=== PATIENT | female | born 1950 | race Caucasian/White ===

== ENCOUNTER 2019-05-04 09:44 | Outpatient (CLI) | payer OTHER, SELFPAY ==
--- NOTE | 2019-05-04 10:40 | ECG_ITS ---
Measurements Intervals [place] Rate: 69 P: 60 ID: 170 QRS: 8 QRSD: 80 T: 30 QT: 377 QTc: 404 Interpretive Statements SINUS RHYTHM LOW QRS VOLTAGE IN PRECORDIAL LEADS BORDERLINE T WAVE ABNORMALITY- INFERIOR LEADS BASELINE ARTIFACT- I, II, III, AVR, AVL, AVF BORDERLINE ECG Electronically Signed On 05-04-2019 11:14:31 ERP TECHNICAL LEAD by Randall Rodriguez D.O.
[2019-05-04 11:35] LABS: Basophils Absolute Auto 0.1 K/mm3 (0.0-0.1); Eosinophils Absolute Auto 0.2 K/mm3 (0-0.3); Hematocrit 41.3 % (37.0-47.0); Hemoglobin 13.4 g/dL (12.0-15.0); Immature Granulocyte Absolute 0.04 K/mm3 (0.00-0.031); Immature Granulocyte Percent A 0.4 % (0-0.5); Lymphocytes Absolute Auto 2.78 K/mm3 (0.9-3.2); Lymphocytes Percent Auto 29.6 % (18.3-44.2); Mean Corpuscular HGB Conc 32.4 g/dl (32-36); Mean Corpuscular Hemoglobin 29.7 pg (26-34); Mean Corpuscular Volume 91.6 fl (80-100); Mean Platelet Volume 12.1 fl (7.4-10.4); Monocytes Absolute Auto 0.6 K/mm3 (0.1-0.6); Monocytes Percent Auto 6.3 % (2.6-8.5); Neutrophils Absolute Auto 5.7 K/mm3 (1.3-6.7); Neutrophils Percent Auto 60.7 % (45.5-73.1); Platelet Count Result 273 k/mm3 (150-375); Red Blood Count 4.51 M/mm3 (4.2-5.4); Red Cell Distribution Width 12.7 % (11.5-14.5); White Blood Count 9.4 K/mm3 (4.5-10.0)
[2019-05-04 11:46] LABS: Albumin Level 4.1 g/dL (3.5-5.1); Estimated Glomerular Filt Rate 55; Glucose 73 mg/dL (65-105)
[2019-05-04 12:19] LABS: Hemoglobin A1C 6.1 % (<5.7)
[2019-05-04 12:21] LABS: Urine Cotinine NEGATIVE
== END 2019-05-04 09:45 | disposition home or self-care (01) ==
PROVIDERS: PCP Nurse Practitioner Family; Visit Provider Orthopaedic Surgery
DX: Z41.9 Encounter for procedure for purposes other than remedying health state, unspecified (principal); I10 Essential (primary) hypertension; R94.31 Abnormal electrocardiogram [ECG] [EKG]
CPT/HCPCS: 36415; 80307; 82040; 82565; 82947; 83036; 85025; 86850; 86900; 86901; 93005

== ENCOUNTER 2019-05-06 09:20 | Outpatient (CLI) | payer OTHER, SELFPAY ==
[2019-05-06 09:54] LABS: Blood Urea Nitrogen 22 mg/dL (7-17); Calcium 8.8 mg/dL (8.4-10.2); Carbon Dioxide 24 mmol/L (22-30); Chloride 104 mmol/L (98-107); Estimated Glomerular Filt Rate > 60; Glucose 91 mg/dL (65-105); Sodium 138 mmol/L (137-145)
== END 2019-05-06 09:21 | disposition home or self-care (01) ==
PROVIDERS: PCP Nurse Practitioner Family; Visit Provider Anesthesiology
DX: Z79.899 Other long term (current) drug therapy (principal)
CPT/HCPCS: 36415; 80048

== ENCOUNTER 2019-05-13 00:35 | Day surgery (SDC) | payer OTHER, SELFPAY ==
[2019-05-04 10:14] VITALS: BMI 38.0
[2019-05-04 10:38] VITALS: BP 160/72; PULSE 80; RESP 20; TEMP 37.6; O2SAT 94
--- NOTE | 2019-05-06 13:48 | PM.IMHP ---
H&P: HPI History of Present Illness Chief complaint: OA Right Knee Narrative: Garima Chairez is a 68 year old female with chronic R knee pain due to OA, pain not relieved by coservative measures including cortisone, PT, NSAIDS and activity modifications, xrays reveal advanced DJD, now ready for TKA Review of Systems Review of Systems: All systems reviewed & are unremarkable except as noted in HPI and below PMFSH Past Medical History Medical History (Updated 05/06/19 @ 13:56 by GIOVANI Grissom) Acute atopic conjunctivitis of both eyes Encounter for screening colonoscopy 2015 Essential (primary) hypertension Surgical History Surgical History (Updated 03/17/19 @ 16:07 by Adalgisa Paez NP) H/O cervical spinal arthrodesis H/O tubal ligation 1974 History of tonsillectomy Family History Family History (Updated 11/26/13 @ 07:13 by DOCTOR UNKNOWN) Sibling Family history of glaucoma Hypertension Family history of heart disease in male family member before age 55 Mother Family history of malignant neoplasm of bone Father Family history of heart disease in male family member before age 55 Social History Social History Smoking status: Former smoker Second hand tobacco smoke exposure: No Smoking end date: 04/01/02 Alcohol intake: current Meds Home Medications and Allergies Home Medications Medication Instructions Recorded Confirmed Type fluticasone propionate 50 1 spray NASAL DAILY PRN 03/17/19 05/04/19 History mcg/actuation nasal spray,suspension triamterene 37.5 1 cap PO DAILY #90 cap 03/17/19 05/04/19 Rx mg-hydrochlorothiazide 25 mg capsule acetaminophen 1,000 mg PO Q6H PRN 05/04/19 05/04/19 History calcium carbonate-vitamin D3 1 tablet DAILY 05/04/19 05/04/19 History [Calcium 600 + D(3)] ibuprofen 600 mg PO Q6H PRN 05/04/19 05/04/19 History losartan 100 mg PO HS 05/04/19 05/04/19 History Allergies Allergy/AdvReac Type Severity Reaction Status Date / Time Penicillins Allergy Unknown Rash Verified 05/04/19 10:02 Exam HENMT: Head: normal to inspection Resp: Effort & Inspection: normal respiratory effort Auscultation: clear to auscultation bilaterally Cardio: Rate: regular rate Rhythm: regular rhythm GI: Inspection: normal to inspection Auscultation: normal bowel sounds Skin: General skin exam: normal color Lesions: no lesions Rashes: no rashes Neuro: General: oriented to person, oriented to place, oriented to time, patient oriented x3 and CN's II-XI intact bilaterally Extrem: Other: R knee shows pain with manip and ROM, has subpatellar crepitation, tenderness along the joint lines,mild effusion, pain with ambulation, hips move well with neg stinchfield, neg ayaka Psych: Appearance: grossly normal Assessment and Plan Assessment and plan (1) Osteoarthritis, knee: Qualifiers: Laterality: right Osteoarthritis type: primary Qualified Code(s): M17.11 - Unilateral primary osteoarthritis, right knee Code(s): M17.10 - Unilateral primary osteoarthritis, unspecified knee Status: Acute Assessment and Plan: Primary OA R knee, has discussed risks benefits limitations and alternatives in detail with Dr Chairez and is ready to proceed with a R total knee arthroplasty on 05-13-19 at [facility]
--- NOTE | 2019-05-12 18:05 | WPDANESEPP ---
Anes - Eval Pre Procedure Procedure: Operation Date: 05/13/19 07:30 Proposed Procedures p Right Total Knee Arthroplasty - Lukas Chairez MD Date/Time: 05/12/19 18:05 Pre Op Diagnosis: OA Right Knee Patient Data Age: 68 Gender: F Height: 1.55 m Weight: 91.2 kg Last Vital Signs Temp 37.6 C H 05/04/19 10:38 Pulse 80 05/04/19 10:38 Resp 20 05/04/19 10:38 BP 160/72 H 05/04/19 10:38 Pulse Ox 94 05/04/19 10:38 Allergies Allergy/AdvReac Type Severity Reaction Status Date / Time Penicillins Allergy Unknown Rash Verified 05/04/19 10:02 Home Medications Medication Instructions Recorded Confirmed Type fluticasone propionate 50 1 spray NASAL DAILY PRN 03/17/19 05/04/19 History mcg/actuation nasal spray,suspension triamterene 37.5 1 cap PO DAILY #90 cap 03/17/19 05/04/19 Rx mg-hydrochlorothiazide 25 mg capsule acetaminophen 1,000 mg PO Q6H PRN 05/04/19 05/04/19 History calcium carbonate-vitamin D3 1 tablet DAILY 05/04/19 05/04/19 History [Calcium 600 + D(3)] ibuprofen 600 mg PO Q6H PRN 05/04/19 05/04/19 History losartan 100 mg PO HS 05/04/19 05/04/19 History Patient hx anesthesia problems: none Family hx anesthesia problems: none PMFSH Past Medical History Medical History (Updated 05/12/19 @ 13:15 by Hugh Vázquez DO) Acute atopic conjunctivitis of both eyes DJD (degenerative joint disease), cervical Encounter for screening colonoscopy 2015 Essential (primary) hypertension Surgical History Surgical History (Updated 03/17/19 @ 16:07 by Adalgisa Paez NP) H/O cervical spinal arthrodesis H/O tubal ligation 1974 History of tonsillectomy Family History Family History (Updated 11/26/13 @ 07:13 by DOCTOR UNKNOWN) Sibling Family history of glaucoma Hypertension Family history of heart disease in male family member before age 55 Mother Family history of malignant neoplasm of bone Father Family history of heart disease in male family member before age 55 Social History Social History Smoking status: Former smoker Second hand tobacco smoke exposure: No Smoking end date: 04/01/02 Alcohol intake: current Exam Day of Procedure 05/12/19 18:05
[2019-05-13] VITALS (12 sets, daily range): BP systolic 89–118; BP diastolic 45–61; PULSE 63–86; RESP 10–20; TEMP 36.4–37; O2SAT 94–100; BMI 37.8
--- NOTE | ~2019-05-13 | XR_ITS ---
EXAMINATION: XR knee RT 2V DATE: 05/13/2019 09:17 INDICATION: Total right knee arthroplasty. Postop. TECHNIQUE: 2 views of right knee were obtained. COMPARISON: Right knee radiographs 11/19/2018 FINDINGS: There is a total right knee arthroplasty with patellar resurfacing in near-anatomic alignme nt. No fracture. There is gas in the knee joint and soft tissues, consistent with recent surgery. Ant erior skin holile are noted. IMPRESSION: 1. Total right knee arthroplasty in near-anatomic alignment. Reviewed, dictated and finalized at location A. [employer] DESIGNER
[2019-05-13] MEDS: LACTATED RINGERS 1,000 ML 30 ML IV CONT ×2 (06:34→09:29)
--- NOTE | 2019-05-13 07:00 | WPDANESPNB ---
Anes - Peripheral Nerve Block Date/Time: 05/13/19 07:00 I have discussed with the patient/family/POA the placement of a peripheral nerve block for post-operative pain management, including associated risks, benefits, complications, and side effects. Alternative methods of post-operative analgesia were detailed. Questions were solicited and answers provided to the satisfaction of the patient/family/POA. Time-Out: A pre-procedural Time-Out was completed immediately before starting the procedure and confirmed: Patient Identification, Site, Procedure, Patient Position and the Availability of Requisite Equipment. Clinical Indications: Acute post-operative pain management requested by the operative surgeon. Nerve Block Insertion Note Anes-nerve block: adductor canal right Patient position: supine Skin prep: chlorhexidine Needle: 22 gauge, stimulating, insulated echogenic needle. Needle length: 80 mm Technique: ultrasound Injectate: bupivacaine 0.5% with epi 5 mcg/ml (30cc) Observations: tolerated well Complications: none Procedure start time:: 719 Procedure end time:: 722
--- NOTE | 2019-05-13 07:21 | WPDHPUPDATE1 ---
History and Physical Update Update Date/Time: 05/13/19 07:21 History and Physical has been reviewed, including an updated exam of the patient. There are NO changes in the patient's condition. Risks, benefits, and alternatives have been discussed and questions answered. Patient agrees to proceed with procedure.
[2019-05-13] MEDS: CLINDAMYCIN 900 MG/NS 50 ML 900 MG/50 ML PIGGYBACK 50 MG IVPB ×2 (07:29→21:16)
--- NOTE | 2019-05-13 08:40 | P.OP_ITS ---
Procedure Note - Detailed Date of procedure: 05/13/19 Pre-op diagnosis: OA Right Knee Post-op diagnosis: same Procedure performed: [Right] total knee arthroplasty Description of procedure: The patient was brought to the operating room. General anesthetic was administered. Placed on the operating table and sterilely prepped and draped in usual manner. A longitudinal incision was made. Tourniquet inflated to 300 mmHg for a total of [time] minutes. Dissection carried down to the fascia. Medial parapatellar incision was made and the patella subluxated laterally. Patella cut from [23] to [14] mm and sized for a [34] mm button. The tibia cut perpendicular to the long axis and femur cut in 5 degrees of valgus, a [62.5] femur trialed. [67] tibia was felt to fit the best. The soft tissue balanced, hemostasis obtained. All [address], [67] tibia, [62.5] femur, [34] mm patella, and [11] mm poly. Motion was 0-125 degrees with good stablility and flexion and extension. The wound was closed with #2 vicryl, 2-0 Vicryl and hollie. Anesthesia: GETA Surgeon: Lukas Chairez MD Elementary Vocal Music Teacher: Narendra Mae Estimated blood loss (mL): 200 Drains: No Packing: No Pathology: none sent Complications: No immediate complications Condition: stable Disposition: PACU Findings: arthritis
[2019-05-13] MEDS: GENTAMICIN BONE CEMENT REFOBACIN 1 EACH TOPICAL (08:47)
[2019-05-13] MEDS: HYDROMORPHONE HCL 1 MG/ML INJ 0.5 MG IV PUSH (09:49)
--- NOTE | 2019-05-13 10:24 | SUR.PHASEI ---
1012 sbar faxed floor notified 1010 family updated and sent to floor
--- NOTE | 2019-05-13 10:41 | SUR.PHASEI ---
Addendum entered by Jonatan Jolly RN 05/13/19 10:42: radiology at bedside for rt knee xrays Original Note: 0910
--- NOTE | 2019-05-13 10:53 | ADMGEN ---
This patient, Garima Chairez, was admitted to 3 Med Surg Room 322-02 at 1045. Patient/family oriented to hospital policies and general routines including ID bracelet, bed and alarms, visiting hours, pain management, procedures, bathroom and other care routines, personal items, smoking policy, room service/diet, and visiting hours. Valuables list has been completed. Information on how to activate the Rapid Response Team has been discussed. Patient/Family are encouraged to report perceived risks to care and to ask questions if they do not understand what they are told or what they should do.
[2019-05-13 12:05] LABS: Estimated CRCL calculation 49 ml/min; Estimated Glomerular Filt Rate 55
[2019-05-13] MEDS: SODIUM CHLORIDE 0.9% IV 1,000 ML 125 ML IV CONT (12:09)
[2019-05-13] MEDS: TRIAMTERENE 37.5 MG/HCTZ 25 MG (MAXZIDE) TABLET 1 TAB PO (12:11)
[2019-05-13] MEDS: SODIUM CHLORIDE 0.9% IV 1,000 ML 999 ML IV CONT (13:15)
[2019-05-13 13:26] LABS: Hematocrit 38.3 % (37.0-47.0); Hemoglobin 11.4 g/dL (12.0-15.0); Mean Corpuscular HGB Conc 29.8 g/dl (32-36); Mean Corpuscular Hemoglobin 29.8 pg (26-34); Mean Corpuscular Volume 100.3 fl (80-100); Mean Platelet Volume 11.4 fl (7.4-10.4); Platelet Count Result 244 k/mm3 (150-375); Red Blood Count 3.82 M/mm3 (4.2-5.4); Red Cell Distribution Width 13.2 % (11.5-14.5); White Blood Count 13.4 K/mm3 (4.5-10.0)
[2019-05-13 13:39] LABS: Blood Urea Nitrogen 19 mg/dL (7-17); Carbon Dioxide 20 mmol/L (22-30); Chloride 103 mmol/L (98-107); Estimated CRCL calculation 54 ml/min; Estimated Glomerular Filt Rate > 60; Glucose 118 mg/dL (65-105); Potassium 4.6 mmol/L (3.4-5.0); Sodium 136 mmol/L (137-145)
--- NOTE | 2019-05-13 14:35 | PM.IMCN ---
Assessment and Plan Assessment and plan (1) Osteoarthritis, knee: Qualifiers: Osteoarthritis type: primary Laterality: right Qualified Code(s): M17.11 - Unilateral primary osteoarthritis, right knee Code(s): M17.10 - Unilateral primary osteoarthritis, unspecified knee Status: Acute Assessment and Plan: Postop day 0, appears to be doing well and further intervention per Ortho (2) Essential (primary) hypertension: Code(s): I10 - Essential (primary) hypertension Status: Chronic Assessment and Plan: With low blood pressure in the ARB will be held and continue to monitor (3) Hypotension: Code(s): I95.9 - Hypotension, unspecified Status: Acute Assessment and Plan: Probably multifactorial. Will hold ARB and fluid challenge. She seems to be slightly dry with BUN at 20 Hemoglobin is stable. Continue to monitor no suggestion of any cardiac malady (4) DVT (deep venous thrombosis): Code(s): I82.409 - Acute embolism and thrombosis of unspecified deep veins of unspecified lower extremity Status: Acute Assessment and Plan: Xarelto per Ortho HPI Data of Consult Consult date: 05/13/19 Requesting Physician: Lukas Chairez MD Primary Care Provider: Adalgisa Paez NP Consult Narrative Narrative: Date of visit 05/13 1399 Garima Chairez is a 68 year old hypertensive white female status post right total knee arthroplasty this a.m.. Was called because her blood pressure was low to evaluate and treat. She did receive her losartan last evening and her hydrochlorothiazide triamterene and this a.m. she denied any lightheadedness chest pain shortness of breath or other symptomatology. There was no unusual blood loss at surgery. She states her usual blood pressure is systolic about 120 and did have trouble with her pressure running low post colonoscopy. She also relates she had a negative stress test within the last 1-2 years at [facility] for atypical chest discomfort. Review of Systems Review of Systems: Narrative: Constitutional appetite good weight is stable Eye no double vision or scotoma Pulmonary no shortness breath wheezing cough CV no palpitations chest pain no dysuria no hematuria GI no melena hematochezia diarrhea or dysphagia Muscle skeletal the arthritis has per present illness left knee minimal discomfort at times Neuro no history of seizure syncope Integument no rashes or skin breakdown Psych no history of depression [facility] Past Medical History Medical History (Updated 05/13/19 @ 14:43 by Esau Melendez MD) Acute atopic conjunctivitis of both eyes DJD (degenerative joint disease), cervical Encounter for screening colonoscopy 2016 Essential (primary) hypertension Surgical History Surgical History (Updated 03/17/19 @ 16:07 by Adalgisa Paez NP) H/O cervical spinal arthrodesis H/O tubal ligation 1974 History of tonsillectomy Social History Social History Smoking packs per day: 2.5 Smoking cigarettes per day: 50.0 Years smoked: 18 Smoking pack-years: 45.00 Smoking status: Former smoker Second hand tobacco smoke exposure: No Smoking end date: 04/01/02 Alcohol intake: current Drinks per week: 1 Substance use: never Gender identity (if verbalized by the patient): Female Spiritual care concerns: No Agree to blood products: Yes Meds Home Medications and Allergies Home Medications Medication Instructions Recorded Confirmed Type fluticasone propionate 50 1 spray NASAL DAILY PRN 03/17/19 05/13/19 History mcg/actuation nasal spray,suspension triamterene 37.5 1 cap PO DAILY #90 cap 03/17/19 05/13/19 Rx mg-hydrochlorothiazide 25 mg capsule acetaminophen 1,000 mg PO Q6H PRN 05/04/19 05/13/19 History calcium carbonate-vitamin D3 1 tablet DAILY 05/04/19 05/13/19 History [Calcium 600 + D(3)] ibuprofen 600 mg PO Q6H PRN 05/04/19 05/13/19 History losartan 100 mg PO HS 02
[2019-05-13] MEDS: DOCUSATE SODIUM 100 MG CAPSULE PO (18:20)
[2019-05-13] MEDS: RIVAROXABAN 10 MG TABLET PO (18:21)
[2019-05-14 02:05] VITALS: BP 113/51; PULSE 85; RESP 18; TEMP 36.8; O2SAT 91
[2019-05-14 06:11] VITALS: BP 114/54; PULSE 88; RESP 18; TEMP 37; O2SAT 92
[2019-05-14 06:56] LABS: Basophils Percent Auto 0.3 % (0.2-1.2); Eosinophils Absolute Auto 0.1 K/mm3 (0-0.3); Eosinophils Percent Auto 0.7 % (0-4.4); Hematocrit 32.3 % (37.0-47.0); Hemoglobin 10.4 g/dL (12.0-15.0); Immature Granulocyte Absolute 0.04 K/mm3 (0.00-0.031); Immature Granulocyte Percent A 0.4 % (0-0.5); Lymphocytes Absolute Auto 1.81 K/mm3 (0.9-3.2); Lymphocytes Percent Auto 17.3 % (18.3-44.2); Mean Corpuscular HGB Conc 32.2 g/dl (32-36); Mean Corpuscular Hemoglobin 29.5 pg (26-34); Mean Corpuscular Volume 91.5 fl (80-100); Mean Platelet Volume 11.2 fl (7.4-10.4); Monocytes Absolute Auto 0.9 K/mm3 (0.1-0.6); Monocytes Percent Auto 8.3 % (2.6-8.5); Neutrophils Absolute Auto 7.7 K/mm3 (1.3-6.7); Platelet Count Result 219 k/mm3 (150-375); Red Blood Count 3.53 M/mm3 (4.2-5.4); White Blood Count 10.5 K/mm3 (4.5-10.0)
[2019-05-14 07:14] LABS: Blood Urea Nitrogen 15 mg/dL (7-17); Calcium 7.7 mg/dL (8.4-10.2); Carbon Dioxide 23 mmol/L (22-30); Chloride 104 mmol/L (98-107); Estimated CRCL calculation 60 ml/min; Estimated Glomerular Filt Rate > 60; Glucose 110 mg/dL (65-105); Potassium 3.8 mmol/L (3.4-5.0); Sodium 136 mmol/L (137-145)
[2019-05-14] MEDS: DOCUSATE SODIUM 100 MG CAPSULE PO ×2 (08:51→17:37)
[2019-05-14] MEDS: TRIAMTERENE 37.5 MG/HCTZ 25 MG (MAXZIDE) TABLET 1 TAB PO (08:51)
[2019-05-14] MEDS: CELECOXIB 200 MG CAPSULE PO ×2 (12:51→17:36)
[2019-05-14 14:00] VITALS: BP 120/50; PULSE 78; RESP 18; TEMP 37; O2SAT 98
--- NOTE | 2019-05-14 14:53 | P.PNAN_ITS ---
Anes - Prog Note Post-Op Date/Time: 05/14/19 14:53 Cardiovascular status: normal Respiratory status: normal Airway patency: baseline Mental status: baseline Post-Op hydration status: normal Vital Signs: Last Vital Signs Temp 98.6 F 05/14/19 14:00 Pulse 78 05/14/19 14:00 Resp 18 05/14/19 14:00 BP 120/50 L 05/14/19 14:00 Pulse Ox 98 05/14/19 14:00 I/O: Intake & Output 05/13/19 05/14/19 05/14/19 23:59 07:59 15:59 Intake Total 650 1350 240 Output Total 300 400 0 Balance 350 950 240 Laboratory Tests 05/14/19 06:31 05/14/19 06:31 05/14/19 05/14/19 06:31 06:31 WBC 10.5 H RBC 3.53 L Hgb 10.4 L Hct 32.3 L MCV 91.5 D MCH 29.5 MCHC 32.2 RDW 13.0 Plt Count 219 MPV 11.2 H Immature Gran % (Auto) 0.4 Neut % (Auto) 73.0 Lymph % (Auto) 17.3 L [place] % (Auto) 8.3 Eos % (Auto) 0.7 Baso % (Auto) 0.3 Lymph # (Auto) 1.81 [place] # (Auto) 0.9 H Eos # (Auto) 0.1 Baso # (Auto) 0.0 Abs Immat Gran (auto) 0.04 H Absolute Neuts (auto) 7.7 H Absolute Nucleated RBC 0.0 Nucleated RBC % 0.0 Sodium 136 L Potassium 3.8 Chloride 104 Carbon Dioxide 23 BUN 15 Creatinine 0.80 Estim Creat Clear Calc 60 Estimated GFR > 60 Glucose 110 H Calcium 7.7 L Post-procedural complaints: none Patient Feedback: Patient satisfied with anesthetic care.
--- NOTE | 2019-05-14 16:47 | PM.IMPN ---
Progress Note: A&P Assessment and Plan (1) Osteoarthritis, knee: Qualifiers: Osteoarthritis type: primary Laterality: right Qualified Code(s): M17.11 - Unilateral primary osteoarthritis, right knee Code(s): M17.10 - Unilateral primary osteoarthritis, unspecified knee Status: Acute Assessment and Plan: Postop day 1, appears to be doing well and further intervention per Ortho (2) Essential (primary) hypertension: Code(s): I10 - Essential (primary) hypertension Status: Chronic Assessment and Plan: With low blood pressure holding the ARB and continue monitor pressure continuing diuretic (3) Hypotension: Code(s): I95.9 - Hypotension, unspecified Status: Acute Assessment and Plan: Probably multifactorial. Held aRB and with fluid challenge blood pressure rebounded. (4) DVT (deep venous thrombosis): Code(s): I82.409 - Acute embolism and thrombosis of unspecified deep veins of unspecified lower extremity Status: Acute Assessment and Plan: Xarelto per Ortho Subjective Date/time seen: 05/14/19 16:47 Interval history: Date of visit 05/14. [age] old hypertensive white female postop day 1. Right total knee arthroplasty. Having quite a bit of pain otherwise doing okay. No shortness of breath lightheadedness or dizziness Exam Narrative: Exam Narrative: Blood pressure 120/50 pulse 70 right arm lying afebrile Pupils equal reactive to light sclera anicteric Lungs clear CV regular rate rhythm no murmurs or gallops Abdomen soft nontender obese no masses Extremities without edema right leg is wrapped from foot to above knee but can still palpate dorsalis pedis well and 2+ and symmetrical Objective Data Vital Signs Vital Signs: Vital Signs - 24 hr 05/13/19 22:00 05/14/19 02:05 05/14/19 06:11 Temperature 36.6 C 36.8 C 37.0 C Pulse Rate 72 85 88 Respiratory Rate 18 18 18 Blood Pressure 116/52 L 113/51 L 114/54 L Pulse Oximetry 94 91 92 05/14/19 14:00 Temperature 37.0 C Pulse Rate 78 Respiratory Rate 18 Blood Pressure 120/50 L Pulse Oximetry 98 Intake/Output Intake/Output: Intake & Output 05/11/19 05/12/19 05/13/19 05/14/19 23:59 23:59 23:59 23:59 Intake Total 3550 1590 Output Total 300 400 Balance 3250 1190 Meds/Results Medications: Active Medications Generic Name Dose Route Start Last Admin Trade Name Freq PRN Reason Stop Dose Admin Acetaminophen 1,000 mg 05/13/19 08:45 Tylenol Tablet PO Q6H PRN Pain 1-3 Hydrocodone Bitart/Acetaminophen 1 tab 05/13/19 13:00 05/14/19 12:51 [place] 7.5-325 Mg PO 1 tab Q4HR CRAIG Administration Celecoxib 200 mg 05/14/19 09:00 05/14/19 12:51 Celebrex PO 200 mg BIDWM CRAIG Administration Docusate Sodium 100 mg 05/13/19 17:00 05/14/19 08:51 Colace Capsule PO 100 mg BID CRAIG Administration Fentanyl Citrate 25 mcg 05/12/19 13:15 05/13/19 09:38 Sublimaze IV PUSH 25 mcg Q2M PRN Administration Pain Losartan Potassium 100 mg 05/13/19 21:00 Cozaar PO HS CRAIG Morphine Sulfate 4 mg 05/13/19 08:42 Morphine Sulfate Inj IV PUSH Q2H PRN Breakthrough pain rated 7-10 Naloxone HCl 0.1 mg 05/13/19 08:42 Narcan IV PUSH Q2M PRN Opiate Reversal Oxycodone HCl 5 mg 05/13/19 08:42 Roxicodone Ir Tablet PO Q4H PRN Pain Rated 4-6 Rivaroxaban 10 mg 05/13/19 17:00 05/13/19 18:21 Xarelto PO 05/24/19 17:01 10 mg DAILY@17 CRAIG Administration Tramadol HCl 50 mg 05/13/19 08:42 Ultram PO Q4H PRN Pain Rated 4-6 Triamterene/HCTZ 1 tab 05/13/19 09:00 05/14/19 08:51 Maxzide-25 PO 1 tab DAILY CRAIG Administration Radiology Results: ITS Impressions Knee X-Ray 05/13/19 09:18 IMPRESSION: 1. Total right knee arthroplasty in near-anatomic alignment. Labs Labs: Laboratory Results - last 24 hr 05/14/19 05/14/19 06:31 06:31 WBC 1
--- NOTE | 2019-05-14 16:54 | PM.PNORT ---
Progress Note: A&P Additional Plan pt doing well POD #1, DC home today, see orders Time Spent With Patient Time with patient: less than 15 minutes Subjective Subjective Date/Time Seen: 05/14/19 16:54 Pt with some post op pain after block wore off, but otherwise doing well, no other complaints and ready to go home Exam Narrative: Exam Narrative: VSS afebrile NV intact wound dressing clean and dry calves benign Objective Data Vital Signs Vital Signs: Vital Signs - 24 hr 05/13/19 22:00 05/14/19 02:05 05/14/19 06:11 Temperature 36.6 C 36.8 C 37.0 C Pulse Rate 72 85 88 Respiratory Rate 18 18 18 Blood Pressure 116/52 L 113/51 L 114/54 L Pulse Oximetry 94 91 92 05/14/19 14:00 Temperature 37.0 C Pulse Rate 78 Respiratory Rate 18 Blood Pressure 120/50 L Pulse Oximetry 98 Intake/Output Intake/Output: Intake & Output 05/11/19 05/12/19 05/13/19 05/14/19 23:59 23:59 23:59 23:59 Intake Total 3550 1590 Output Total 300 400 Balance 3250 1190 Meds/Results Medications: Active Medications Generic Name Dose Route Start Last Admin Trade Name Freq PRN Reason Stop Dose Admin Acetaminophen 1,000 mg 05/13/19 08:45 Tylenol Tablet PO Q6H PRN Pain 1-3 Hydrocodone Bitart/Acetaminophen 1 tab 05/13/19 13:00 05/14/19 12:51 [place] 7.5-325 Mg PO 1 tab Q4HR CRAIG Administration Celecoxib 200 mg 05/14/19 09:00 05/14/19 12:51 Celebrex PO 200 mg BIDWM CRAIG Administration Docusate Sodium 100 mg 05/13/19 17:00 05/14/19 08:51 Colace Capsule PO 100 mg BID CRAIG Administration Fentanyl Citrate 25 mcg 05/12/19 13:15 05/13/19 09:38 Sublimaze IV PUSH 25 mcg Q2M PRN Administration Pain Losartan Potassium 100 mg 05/13/19 21:00 Cozaar PO HS CRAIG Morphine Sulfate 4 mg 05/13/19 08:42 Morphine Sulfate Inj IV PUSH Q2H PRN Breakthrough pain rated 7-10 Naloxone HCl 0.1 mg 05/13/19 08:42 Narcan IV PUSH Q2M PRN Opiate Reversal Oxycodone HCl 5 mg 05/13/19 08:42 Roxicodone Ir Tablet PO Q4H PRN Pain Rated 4-6 Rivaroxaban 10 mg 05/13/19 17:00 05/13/19 18:21 Xarelto PO 05/24/19 17:01 10 mg DAILY@17 CRAIG Administration Tramadol HCl 50 mg 05/13/19 08:42 Ultram PO Q4H PRN Pain Rated 4-6 Triamterene/HCTZ 1 tab 05/13/19 09:00 05/14/19 08:51 Maxzide-25 PO 1 tab DAILY CRAIG Administration Radiology Results: ITS Impressions Knee X-Ray 05/13/19 09:18 IMPRESSION: 1. Total right knee arthroplasty in near-anatomic alignment. Labs Labs: Laboratory Results - last 24 hr 05/14/19 05/14/19 06:31 06:31 WBC 10.5 H RBC 3.53 L Hgb 10.4 L Hct 32.3 L MCV 91.5 D MCH 29.5 MCHC 32.2 RDW 13.0 Plt Count 219 MPV 11.2 H Immature Gran % (Auto) 0.4 Neut % (Auto) 73.0 Lymph % (Auto) 17.3 L [place] % (Auto) 8.3 Eos % (Auto) 0.7 Baso % (Auto) 0.3 Lymph # (Auto) 1.81 [place] # (Auto) 0.9 H Eos # (Auto) 0.1 Baso # (Auto) 0.0 Abs Immat Gran (auto) 0.04 H Absolute Neuts (auto) 7.7 H Absolute Nucleated RBC 0.0 Nucleated RBC % 0.0 Sodium 136 L Potassium 3.8 Chloride 104 Carbon Dioxide 23 BUN 15 Creatinine 0.80 Estim Creat Clear Calc 60 Estimated GFR > 60 Glucose 110 H Calcium 7.7 L
--- NOTE | 2019-05-14 16:56 | P.DS_ITS ---
DS: Diagnosis Admitting Diagnosis Admitting Diagnosis: Encounter for procedure for purposes other than remedying h ealth state, unspecified Severe DJD R knee DS: Summary Time Spent with Patient Time attestation: Total time spent providing and/or coordinating discharge services: Exam Narrative: Exam Narrative: VSS afebrile NV intact wound clean and dry calves benign, pt looks good POD #1 DS: Data Data Completed and Pending Labs on day of discharge: Labs from last 24 hours 05/14/19 05/14/19 06:31 06:31 WBC 10.5 H RBC 3.53 L Hgb 10.4 L Hct 32.3 L MCV 91.5 D MCH 29.5 MCHC 32.2 RDW 13.0 Plt Count 219 MPV 11.2 H Immature Gran % (Auto) 0.4 Neut % (Auto) 73.0 Lymph % (Auto) 17.3 L [place] % (Auto) 8.3 Eos % (Auto) 0.7 Baso % (Auto) 0.3 Lymph # (Auto) 1.81 [place] # (Auto) 0.9 H Eos # (Auto) 0.1 Baso # (Auto) 0.0 Abs Immat Gran (auto) 0.04 H Absolute Neuts (auto) 7.7 H Absolute Nucleated RBC 0.0 Nucleated RBC % 0.0 Sodium 136 L Potassium 3.8 Chloride 104 Carbon Dioxide 23 BUN 15 Creatinine 0.80 Estim Creat Clear Calc 60 Estimated GFR > 60 Glucose 110 H Calcium 7.7 L Discharge Plan Discharge Patient Disposition: Home, Self-Care Discharge Instructions: home with scripts for Xarelto and [place], when Xarelto course is completed, go to [facility] 325mg po BID x 1 month, change dressing daily, start PT for TKA next saturday, call office [phone] for any questions or complaints, general diet Stand Alone Forms: Avoid NSAIDs Follow-up/Referrals: Lukas Chairez MD [Physician] - Discharge Medications: New celecoxib [Celebrex] 200 mg Capsule 200 mg PO BIDWM Qty: 60 RF: 0 hydrocodone-acetaminophen 7.5-325 mg Tablet 1 tab PO Q4HR Qty: 50 RF: 0 Xarelto 10 mg Tablet 10 mg PO DAILY@17 13 Days RF: 0 Continued fluticasone propionate 50 mcg/actuation spray,suspension 1 spray NASAL DAILY PRN (Reason: Congestion) RF: 0 triamterene-hydrochlorothiazid 37.5-25 mg capsule 1 cap PO DAILY Qty: 90 RF: 1 losartan 100 mg tablet 100 mg PO HS RF: 0 Calcium 600 + D(3) 600-125 mg-unit Tablet 1 tablet DAILY RF: 0 Discontinued acetaminophen 500 mg Tablet 1,000 mg PO Q6H PRN (Reason: PAIN) RF: 0 ibuprofen 200 mg Tablet 600 mg PO Q6H PRN (Reason: PAIN) RF: 0
[2019-05-14] MEDS: RIVAROXABAN 10 MG TABLET PO (17:37)
== END 2019-05-14 18:35 | disposition home or self-care (01) ==
LOC: ANHSURGERY 05:51 → ANH3MEDSUR 10:34
PROVIDERS: Internal Medicine; PCP Nurse Practitioner Family; Visit Provider Orthopaedic Surgery
PROC: (CPT 27447; principal; 2019-05-13 07:30)
DX: M17.11 Unilateral primary osteoarthritis, right knee (principal); I10 Essential (primary) hypertension; M47.812 Spondylosis without myelopathy or radiculopathy, cervical region; Z98.1 Arthrodesis status; Z87.891 Personal history of nicotine dependence; G89.18 Other acute postprocedural pain; I95.9 Hypotension, unspecified
CPT/HCPCS: 27447; 64447; 36415; 73560; 80048; 82565; 85025; 85027; 97110; 97116; 97161; 97165; 97530; 97535; A9270; C1713; C1776; J0171; J1100; J1170; J1885; J2270; J2370; J2405; J2704; J2795; J3010; J3370; J7030; J7120

== ENCOUNTER 2019-12-10 15:40 | Outpatient (CLI) | payer OTHER, SELFPAY ==
--- NOTE | ~2019-12-10 | US_ITS ---
EXAMINATION: US thyroid EXAM DATE: 12/10/2019 16:18 INDICATION: Iodine deficiency related goiter. TECHNIQUE: Multiple grayscale and Doppler images of the thyroid were obtained (by a technologist who performed the scan) and subsequently reviewed. Individual nodules and recommendations may be reporte d in accordance with TI-RADS system as designated by the 2017 ACR White Paper TI-RADS committee. The re is no prior study for comparison. FINDINGS: The right thyroid lobe measures 5.3 x 1.6 x 1.7 cm, the left measures 4.9 x 1.3 x 1.4 cm, with relati vely homogeneous thyroid echogenicity. These dimensions are mildly enlarged. There are scattered subc entimeter thyroid nodules, largest measuring 7 mm in the left thyroid lobe. These nodules are not lik dominga clinically significant. IMPRESSION: Multinodular goiter. Return to clinical follow-up and if additional palpable abnormality develops consider repeat ultrasound. Reviewed, dictated and finalized at location G.
== END 2019-12-10 15:41 | disposition home or self-care (01) ==
PROVIDERS: PCP Family Medicine; Visit Provider Family Medicine
DX: E01.0 Iodine-deficiency related diffuse (endemic) goiter (principal)
CPT/HCPCS: 76536

== ENCOUNTER → 2020-01-12 09:40 | Outpatient (CLI) | payer OTHER, SELFPAY ==
--- NOTE | ~2020-01-12 | US_ITS ---
EXAMINATION: US pelvic complete DATE: 01/12/2020 11:06 INDICATION: Postmenopausal bleeding TECHNIQUE: Multiple transabdominal sonographic images of the pelvis were obtained. COMPARISON: 10/01/2006 FINDINGS: The uterus measures 7.5 x 3.1 x 4.0 cm. The endometrial complex measures 5 mm. The right ov gal measures 1.2 x 0.8 x 1.4 cm. The left ovary measures 2.7 x 1.1 x 2.8 cm. There is normal vascular flow in the ovaries. There is no free fluid in the pelvis. IMPRESSION: 1. No sonographic correlate for the patient's symptoms. Reviewed, dictated and finalized at location A.
--- NOTE | ~2020-01-12 | DEXA_ITS ---
Bone Density Report Name: Garima Chairez Age: 69 Sex: Female Ethnicity: White Date of : 1950 Indication: postmenopausal; screening for osteoporosis; prior fracture; Referring Provider: Sergio Malone Study: Bone densitometry was performed. Exam Date: January 12, 2020 Accession number: [id number] Bone Density: Region BMD T-score Z-score Classification AP Spine (L1-L4) 0.990 -0.5 1.6 Normal Femoral Neck (Left) 0.971 1.1 2.9 Normal Total Hip (Left) 1.103 1.3 2.8 Normal Femoral Neck (Right) 0.857 0.1 1.8 Normal Total Hip (Right) 0.917 -0.2 1.3 Normal Total Hip Mean 1.010 0.6 2.1 Normal World Health Organization criteria for BMD impression classify patients as: Normal (T-score at or above -1.0), Osteopenia (T-score between -1.0 and -2.5), or Osteoporosis (T-score at or below -2.5). 10-year Fracture Risk: FRAX not reported because: All T-scores for Spine Total, Hip Total, Femoral Neck at or above -1.0 Prior hip or vertebral fracture Previous Exams: Region Exam Age BMD T-score BMD Change BMD Change Date g/cm2 vs Baseline vs Previous AP Spine(L1-L4) 01/12/2020 69 0.990 -0.5 0.099* 0.044* 10/05/2017 67 0.946 -0.9 0.054* 0.054* 08/13/2015 64 0.892 -1.4 Total Hip(Left) 01/12/2020 69 1.103 1.3 0.066* 0.030* 10/05/2017 67 1.073 1.1 0.035* 0.035* 08/13/2015 64 1.038 0.8 Total Hip(Right) 01/12/2020 69 0.917 -0.2 0.049* 0.003 10/05/2017 67 0.914 -0.2 0.047* 0.047* 08/13/2015 64 0.868 -0.6 *Denotes significance at 95% confidence level, LSC for AP Spine = 0.022 g/cm2, LSC for Total Hip = 0.027 g/cm2 Clinical Information Provided by Patient: Have had a previous hip or vertebral fracture Has had a low trauma fracture Has used the following medications: Vitamin D, Calcium, Levothyroxin Patient maximum height was 61.75 Menopause Age: 54 Drinks caffeinated beverages Onset of menses at age 11 Number of children 2 Impression: The patient has normal bone mass. The patient has risk factors, including: previous fracture. No significant bone loss was observed. Discussion: INCREASED RISK OF FRACTURE DUE TO HISTORY OF FRACTURE. The patient's previous fracture puts the patient at high risk of a future fracture. In untreated patients, the risk of osteoporotic fracture increases approximately two
== END ==
PROVIDERS: Visit Provider Family Medicine
DX: N93.8 Other specified abnormal uterine and vaginal bleeding (principal); Z78.0 Asymptomatic menopausal state; Z13.820 Encounter for screening for osteoporosis
CPT/HCPCS: 76856; 77080

== ENCOUNTER 2020-01-14 07:50 | Outpatient (CLI) | payer OTHER, SELFPAY | END 2020-01-14 07:51 | disposition home or self-care (01) | LOC: ANHBWCAUD 07:51 | PROVIDERS: Visit Provider Otolaryngology | DX: H91.90 Unspecified hearing loss, unspecified ear (principal) | CPT/HCPCS: 92557; 92567 ==

== ENCOUNTER 2020-02-01 10:31 | Emergency (ER) | payer OTHER, SELFPAY ==
--- NOTE | ~2020-02-01 | CT_ITS ---
EXAMINATION: CT lumbar spine [facility] EXAM DATE: 02/01/2020 12:00 INDICATION: low back pain . TECHNIQUE: Spiral CT of the lumbar spine was performed without contrast. Axial, coronal and sagittal images were reviewed. The dose-length product (DLP) for this examination was 972.61 mGy-cm. The e xposure was tailored according to patient size (auto mA exposure control), and iterative reconstructi on (ASIR) was used as additional dose reduction technique. Comparison is made to prior examination fr 11/13/2008. FINDINGS: Mild to moderate chronic anterior wedging of the L2 vertebral body, has healed compared to acute appearance in 2008. The vertebral bodies are aligned in the AP dimension. There is moderate dis c disease at L5-S1, mild to moderate at L1-2, mild at the mid lumbar levels. There are no acute fract ures identified. No spondylolysis. There are no bony erosions identified. Paraspinal soft tissue is u nremarkable. Level by level evaluation: T12-L1: Disc does not extend beyond the endplate margin. Facet arthropathy: None. Neural foraminal stenosis: No stenosis. Central canal stenosis: No stenosis. L1-L2: There is a mild diffuse disc bulge. Facet arthropathy: None. Neural foraminal stenosis: No stenosis. Central canal stenosis: No stenosis. L2-L3: There is a mild diffuse disc bulge. Facet arthropathy: Mild. Neural foraminal stenosis: No stenosis. Central canal stenosis: No stenosis. L3-L4: There is a mild diffuse disc bulge. Facet arthropathy: Mild to moderate. Neural foraminal stenosis: Mild to moderate bilateral. Central canal stenosis: Mild to moderate. L4-L5: There is a mild to moderate diffuse disc bulge. Facet arthropathy: Severe. Neural foraminal stenosis: Mild to moderate bilateral. Central canal stenosis: Mild to moderate. L5-S1: There is a mild to moderate diffuse disc bulge. Facet arthropathy: Moderate bilateral. Neural foraminal stenosis: Moderate left, mild to moderate right. Central canal stenosis: Mild. IMPRESSION: 1. Mild to moderate lower lumbar spondylosis. 2. Chronic L2 compression fracture. 3. No acute findings. Reviewed, dictated and finalized at location B. 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
[2020-02-01 11:01] VITALS: BP 170/83; PULSE 95; RESP 17; TEMP 36.2; O2SAT 100
--- NOTE | 2020-02-01 11:49 | ED.BACK ---
HPI - Back Pain/Injury General Chief Complaint: Back Pain/Injury Stated Complaint: STABBING PAIN IN BACK Time Seen by Provider: 02/01/20 11:38 Source: patient Mode of arrival: ambulatory Limitations: no limitations History of Present Illness HPI Narrative: This is a 69 year old female that presents to the ER for low back pain x 1 month. Reports no known injury or trauma. Reports increasing pain in her low back. Reports it radiates down her legs. Reports she was standing at work all day last week and pain has worsened since. Little relief with over the counter medications. Denies fever, saddle anesthesia or bowel/bladder incontinence. Related Data Home Medications Medication Instructions Recorded Confirmed Calcium 600 + D(3) 1 tablet DAILY 05/04/19 12/31/19 ascorbate calcium (vitamin C) 500 500 mg PO DAILY 01/07/20 mg tablet ibuprofen 200 mg tablet 200 mg PO Q6H PRN 01/07/20 valacyclovir 1 gram tablet 1,000 mg PO Q12H 01/07/20 Allergies Allergy/AdvReac Type Severity Reaction Status Date / Time Penicillins Allergy Intermediate Hives Verified 01/07/20 15:05 Review of Systems Review of Systems: Narrative: CONSTITUTIONAL: Denies fever SKIN: Denies rash MUSCULOSKELETAL: Reports back pain, joint pain, and myalgia. NEUROLOGIC: Denies numbness, or weakness. All systems reviewed & are unremarkable except as noted in HPI and below PMFSH Past Medical History Medical History (Updated 02/01/20 @ 13:02 by Adriana Quiñones PA-C) Acute atopic conjunctivitis of both eyes Allergies DJD (degenerative joint disease), cervical Encounter for screening colonoscopy 2015 Essential (primary) hypertension Hypertension Surgical History Surgical History H/O cervical spinal arthrodesis H/O tubal ligation 1974 History of tonsillectomy Status post right knee replacement Family History Family History Sibling Family history of glaucoma Hypertension Family history of heart disease in male family member before age 55 Mother Family history of malignant neoplasm of bone Father Family history of heart disease in male family member before age 55 Acute myocardial infarction Social History Social History Smoking packs per day: 2.5 Smoking cigarettes per day: 50.0 Years smoked: 18 Smoking pack-years: 45.00 Smoking status: Former smoker Second hand tobacco smoke exposure: No Smoking end date: 04/01/02 Alcohol intake: current Drinks per week: 1 Substance use: never Gender identity (if verbalized by the patient): Female Spiritual care concerns: No Agree to blood products: Yes Exam Narrative: Exam Narrative: GENERAL: Well-appearing, well-nourished, and in no acute distress. HEAD: Normocephalic, atraumatic. EYES: EOMI. CHEST: Clear to auscultation. No respiratory distress. No wheezes rales or rhonchi HEART: Regular rate and rhythm. No murmur heard. Normal peripheral pulses. BACK: No midline spinal tenderness EXTREMITIES: Normal range of motion. No edema. Strength equal bilateral lower extremity (5/5) SKIN: Warm, dry, no rash. NEURO: No focal deficits. Alert and oriented x3. Normal gait PSYCH: Normal mood and affect Course Vital Signs Vital signs: Vital Signs Temperature 97.1 F L 02/01/20 11:01 Pulse Rate 95 02/01/20 11:01 Respiratory Rate 17 02/01/20 11:01 Blood Pressure 170/83 H 02/01/20 11:01 Pulse Oximetry 100 02/01/20 11:01 Temperature 97.1 F L 02/01/20 11:01 Pulse Rate 95 02/01/20 11:01 Respiratory Rate 17 02/01/20 11:01 Blood Pressure 170/83 H 02/01/20 11:01 Pulse Oximetry 100 02/01/20 11:01 MDM - Back Pain/Injury MDM Narrative Medical decision making narrative: Patient presents to the emergency department for lower back pain x1 month. No known injury or trauma. Patient is afebr
[2020-02-01] MEDS: diazePAM INJ (*CRX) 10 MG/2 ML SYRINGE 5 MG IM (12:05)
[2020-02-01] MEDS: ACETAMINOPHEN 500 MG TABLET 1000 MG PO (12:05)
--- NOTE | 2020-02-01 12:24 | PC.NURSE ---
Collected blood from pt. [id number]
[2020-02-01 12:35] LABS: Basophils Absolute Auto 0.1 K/mm3 (0.0-0.1); Basophils Percent Auto 0.9 % (0.2-1.2); Eosinophils Absolute Auto 0.2 K/mm3 (0-0.3); Eosinophils Percent Auto 2.4 % (0-4.4); Hematocrit 39.2 % (37.0-47.0); Hemoglobin 13.3 g/dL (12.0-15.0); Immature Granulocyte Absolute 0.03 K/mm3 (0.00-0.031); Immature Granulocyte Percent A 0.3 % (0-0.5); Lymphocytes Absolute Auto 2.36 K/mm3 (0.9-3.2); Lymphocytes Percent Auto 25.7 % (18.3-44.2); Mean Corpuscular HGB Conc 33.9 g/dl (32-36); Mean Corpuscular Hemoglobin 30.2 pg (26-34); Mean Corpuscular Volume 89.1 fl (80-100); Mean Platelet Volume 11.8 fl (7.4-10.4); Monocytes Absolute Auto 0.5 K/mm3 (0.1-0.6); Monocytes Percent Auto 5.2 % (2.6-8.5); Neutrophils Percent Auto 65.5 % (45.5-73.1); Platelet Count Result 266 k/mm3 (150-375); Red Cell Distribution Width 12.7 % (11.5-14.5); White Blood Count 9.2 K/mm3 (4.5-10.0)
[2020-02-01 12:52] LABS: Anion Gap 8 mmol/L (8-16); Blood Urea Nitrogen 17 mg/dL (7-17); CRP 0.6 mg/dL (<1.0); Calcium 9.2 mg/dL (8.4-10.2); Carbon Dioxide 30 mmol/L (22-30); Chloride 103 mmol/L (98-107); Estimated CRCL calculation 46 ml/min; Estimated Glomerular Filt Rate 55; Glucose 95 mg/dL (65-105); Potassium 3.8 mmol/L (3.4-5.0); Sodium 141 mmol/L (137-145)
== END 2020-02-01 13:16 | disposition home or self-care (01) ==
PROVIDERS: Physician Assistant; Emergency Provider Emergency Medicine; PCP Family Medicine
DX: M54.41 Lumbago with sciatica, right side (principal); M54.42 Lumbago with sciatica, left side; I10 Essential (primary) hypertension; Z98.1 Arthrodesis status; Z96.651 Presence of right artificial knee joint; Z87.891 Personal history of nicotine dependence; M47.816 Spondylosis without myelopathy or radiculopathy, lumbar region
CPT/HCPCS: 36415; 72131; 80048; 85025; 86140; 96372; 99284; A9270; J3360

== ENCOUNTER → 2020-05-02 16:10 | Outpatient (CLI) | payer OTHER, SELFPAY ==
--- NOTE | ~2020-05-02 | MM_ITS ---
EXAMINATION: MM screening [facility] BI w [facility] HISTORY: Screening mammogram TECHNIQUE: Craniocaudal and mediolateral oblique 3-D tomosynthesis images were obtained and synthetic 2-D images were generated. CAD analysis was submitted and interpreted. COMPARISON: 10/17/2018, 10/05/2017, 09/15/2016 BREAST PARENCHYMAL COMPOSITION: There are scattered areas of fibroglandular density. FINDINGS: There is no evidence of suspicious mass, calcification, or architectural distortion to sugg est malignancy in either breast. There has been no suspicious interval change. IMPRESSION: 1. No mammographic evidence of malignancy. 2. Recommend routine screening mammography in one year. BI-RADS Category 1: Negative Reviewed, dictated and finalized at location A. FILTER T[employer]ER [employer]
== END ==
PROVIDERS: PCP Family Medicine; Visit Provider Family Medicine
DX: Z12.31 Encounter for screening mammogram for malignant neoplasm of breast (principal)
CPT/HCPCS: 77063; 77067

== ENCOUNTER 2020-08-06 08:07 | Emergency (ER) | payer OTHER, SELFPAY ==
[2020-08-06 08:12] VITALS: BP 134/59; PULSE 76; RESP 20; TEMP 35.9; O2SAT 98
--- NOTE | 2020-08-06 08:17 | ED.SKABFB ---
HPI - Skin/Abscess/Foreign Bdy General Chief complaint: Skin/Abscess/Foreign Body Stated complaint: rash Time Seen by Provider: 08/06/20 08:17 Source: patient, RN notes reviewed and old records reviewed Mode of arrival: ambulatory Limitations: no limitations History of Present Illness HPI narrative: 69 year old female who presents to [facility] care with complaints of rash which started on Saturday and it keeps spreading. She states that she cleaning out the weeds in her flower bed last week and thinks that she got into some poison lora. Patient has pustule lesions noted on her bilateral forearms, on upper chest and on her neck which is itchy,small new site on abdomen today. Patient denies any difficulty with swallowing or any difficulty with her breathing. Patient has no rash under her eyes or any swelling to face. MD complaint: rash Onset (ago): day(s) Tetanus up to date: unsure Location: neck, chest, LUE and RUE Severity: moderate Quality: pruritic Relieving factors: topical medication and medication Exacerbating factors: palpation Treatments prior to arrival: OTC topical medication and Benadryl Related Data Home Medications Medication Instructions Recorded Confirmed Calcium 600 + D(3) 1 tablet DAILY 05/04/19 08/06/20 Allergies Allergy/AdvReac Type Severity Reaction Status Date / Time Penicillins Allergy Intermediate Hives Verified 08/06/20 08:15 Review of Systems Review of Systems: Narrative: CONSTITUTIONAL: Denies fever, chills, or sweats. EYES: Denies visual changes, redness, or discharge. ENT: Denies rhinorrhea, congestion, sore throat, or otalgia. CARDIOVASCULAR: Denies chest pain, palpitations, or edema. RESPIRATORY: Denies cough or dyspnea. GASTROINTESTINAL: Denies abdominal pain, nausea, vomiting, or diarrhea. GENITOURINARY: Denies dysuria or hematuria. SKIN: Positive for fluid filled vesicles multiple sites with itching MUSCULOSKELETAL: Denies back pain, joint pain, or myalgia. NEUROLOGIC: Denies headache, numbness, or weakness. PSYCHIATRIC: Denies anxiety or depression. All systems reviewed & are unremarkable except as noted in HPI and below PMFSH Past Medical History Medical History (Updated 08/06/20 @ 08:23 by Inez Madrigal NP) Acute atopic conjunctivitis of both eyes Allergies DJD (degenerative joint disease), cervical Encounter for screening colonoscopy 2016 Essential (primary) hypertension Hypertension Surgical History Surgical History H/O cervical spinal arthrodesis H/O tubal ligation 1974 History of tonsillectomy Status post right knee replacement Family History Family History (Updated 06/03/20 @ 15:06 by Linsey Estevez CMA) Sibling Family history of glaucoma Hypertension Family history of heart disease in male family member before age 55 Spinal stenosis Mother Family history of malignant neoplasm of bone Father Family history of heart disease in male family member before age 55 Acute myocardial infarction Social History Social History Smoking packs per day: 2.5 Smoking cigarettes per day: 50.0 Years smoked: 18 Smoking pack-years: 45.00 Smoking status: Former smoker Second hand tobacco smoke exposure: No Smoking end date: 04/01/02 Alcohol intake: current Drinks per week: 1 Substance use: never Gender identity (if verbalized by the patient): Female Spiritual care concerns: No Agree to blood products: Yes Comments At time of signature, agree with nursing past medical, surgical, social and family history. There is no relevant family history pertinent to the presenting complaint Exam Narrative: Exam Narrative: GENERAL: Well-appearing, well-nourished, and in no acute distress. HEAD: Normocephalic, atraumatic. EYES: PERRLA and EOMI. ENT: Nares clear, no rhinorrhea or epistaxis. Mucous membranes moist.TM's normal with good light ref
[2020-08-06] MEDS: methylPREDNISolone ACETATE 80 MG/ML VIAL IM (08:43)
== END 2020-08-06 09:00 | disposition home or self-care (01) ==
PROVIDERS: Emergency Provider Registered Nurse; PCP Family Medicine
DX: L23.7 Allergic contact dermatitis due to plants, except food (principal); Z87.891 Personal history of nicotine dependence; Z96.651 Presence of right artificial knee joint; M47.812 Spondylosis without myelopathy or radiculopathy, cervical region; I10 Essential (primary) hypertension
CPT/HCPCS: 96372; 99213; G0463; J1040

== ENCOUNTER → 2020-08-10 15:32 | Outpatient (CLI) | payer OTHER, SELFPAY ==
--- NOTE | ~2020-08-10 | US_ITS ---
EXAMINATION: US thyroid DATE: 08/10/2020 15:53 INDICATION: Nontoxic multinodular goiter TECHNIQUE: Multiple ultrasound images of the thyroid were obtained. COMPARISON: 12/10/2019 FINDINGS: The right thyroid lobe measures 5.1 x 1.8 x 1.8 cm. The left thyroid lobe measures 4.3 x 1.4 x 1.5 c m. Again seen are a few well-defined anechoic cystic nodules with posterior acoustic enhancement in both the left and right thyroid lobes, the largest measuring 7 mm in maximal diameter in both the lef t and right thyroid lobes. There is normal echotexture, echogenicity and vascular flow throughout th e surrounding thyroid gland. IMPRESSION: 1. Multinodular goiter with no significant interval change in a few likely benign subcentimeter thyro id nodules which do not meet threshold for recommendation of either biopsy or follow-up imaging. Reviewed, dictated and finalized at location A. IMPRESSION: 1. Multinodular goiter with no significant interval change in a few likely lucero gn subcentimeter thyroid nodules which do not meet threshold for recommendation of either biopsy or follow-up imaging.
== END ==
PROVIDERS: PCP Family Medicine; Visit Provider Family Medicine
DX: E04.2 Nontoxic multinodular goiter (principal)
CPT/HCPCS: 76536

== ENCOUNTER 2021-01-11 07:37 | Outpatient (CLI) | payer OTHER, SELFPAY ==
[2021-01-11 18:36] LABS: Basophils Absolute Auto 0.1 K/mm3 (0.0-0.1); Eosinophils Absolute Auto 0.3 K/mm3 (0-0.3); Eosinophils Percent Auto 3.7 % (0-4.4); Hematocrit 39.8 % (37.0-47.0); Hemoglobin 13.2 g/dL (12.0-15.0); Immature Granulocyte Absolute 0.04 K/mm3 (0.00-0.031); Immature Granulocyte Percent A 0.5 % (0-0.5); Lymphocytes Absolute Auto 2.27 K/mm3 (0.9-3.2); Lymphocytes Percent Auto 29.3 % (18.3-44.2); Mean Corpuscular HGB Conc 33.2 g/dl (32-36); Mean Corpuscular Hemoglobin 30.5 pg (26-34); Mean Corpuscular Volume 91.9 fl (80-100); Mean Platelet Volume 12.4 fl (7.4-10.4); Monocytes Absolute Auto 0.6 K/mm3 (0.1-0.6); Monocytes Percent Auto 7.6 % (2.6-8.5); Neutrophils Absolute Auto 4.5 K/mm3 (1.3-6.7); Neutrophils Percent Auto 57.9 % (45.5-73.1); Platelet Count Result 264 k/mm3 (150-375); Red Blood Count 4.33 M/mm3 (4.2-5.4); Red Cell Distribution Width 12.8 % (11.5-14.5); White Blood Count 7.8 K/mm3 (4.5-10.0)
[2021-01-11 18:48] LABS: Alanine Aminotransferase 28 U/L (4-35); Albumin Level 4.1 g/dL (3.5-5.1); Alkaline Phosphatase 84 U/L (38-126); Anion Gap 11 mmol/L (8-16); Aspartate Amino Transferase 24 U/L (14-36); Bilirubin,Total 0.4 mg/dL (0.2-1.3); Blood Urea Nitrogen 20 mg/dL (7-17); Calcium 8.9 mg/dL (8.4-10.2); Carbon Dioxide 21 mmol/L (22-30); Chloride 104 mmol/L (98-107); Cholesterol 183 mg/dL (0-200); Estimated Glomerular Filt Rate > 60; Glucose 100 mg/dL (65-110); HDL Direct 46 mg/dL; Sodium 136 mmol/L (137-145); Triglycerides 180 mg/dL (<150)
[2021-01-11 19:00] LABS: LDL Cholesterol Direct 103 mg/dL
[2021-01-11 20:32] LABS: Vitamin D 25 Hydroxy 29.7 ng/mL
[2021-01-11 20:40] LABS: Thyroid Stimulating Hormone Reflex 0.753 uIU/mL (0.465-4.68)
[2021-01-17 21:41] LABS: Parathyroid Hormone Related Pr 15 pg/mL (11-20)
== END 2021-01-11 07:38 | disposition home or self-care (01) ==
PROVIDERS: PCP Family Medicine; Visit Provider Family Medicine
DX: E04.2 Nontoxic multinodular goiter (principal); I82.409 Acute embolism and thrombosis of unspecified deep veins of unspecified lower extremity; I10 Essential (primary) hypertension; E83.52 Hypercalcemia; R79.89 Other specified abnormal findings of blood chemistry
CPT/HCPCS: 36415; 80053; 80061; 82306; 83519; 84443; 85025

== ENCOUNTER 2021-04-11 00:01 | Day surgery (SDC) | payer OTHER, SELFPAY ==
[2021-03-30 14:52] VITALS: BMI 37.7
[2021-04-11 06:12] VITALS: BP 110/63; PULSE 100; RESP 18; TEMP 36.2; O2SAT 96
[2021-04-11] MEDS: LACTATED RINGERS 1,000 ML 150 ML IV CONT (06:17)
--- NOTE | 2021-04-11 07:13 | WPDANESEPPF ---
Anes - Initial Pre Proc Eval Procedure: Operation Date: 04/11/21 07:30 Proposed Procedures p Screening Colonoscopy - Ang Hutchins MD Date/Time: 04/11/21 07:13 Surgeon: Ang Hutchins MD Pre Op Diagnosis: hx of colon polyps Patient Data Age: 70 Gender: F Height: 1.55 m Weight: 89.7 kg Last Vital Signs Temp 36.2 C L 04/11/21 06:12 Pulse 100 04/11/21 06:12 Resp 18 04/11/21 06:12 BP 110/63 04/11/21 06:12 Pulse Ox 96 04/11/21 06:12 Allergies Allergy/AdvReac Type Severity Reaction Status Date / Time Penicillins Allergy Intermediate Hives Verified 04/11/21 06:10 Home Medications Medication Instructions Recorded Confirmed Type fluticasone propionate 50 1 spray NASAL DAILY PRN #18.2 ml 12/31/19 03/30/21 Rx mcg/actuation nasal spray,suspension loratadine 10 mg tablet 10 mg PO PRN PRN 01/04/21 03/30/21 History losartan 100 mg tablet 100 mg PO DAILY #90 tablet 03/09/21 03/30/21 Rx triamterene 37.5 1 cap PO DAILY #90 cap 03/13/21 03/30/21 Rx mg-hydrochlorothiazide 25 mg capsule levothyroxine 25 mcg tablet 25 mcg PO DAILY #90 tablet 03/14/21 03/30/21 Rx Patient hx anesthesia problems: none Family hx anesthesia problems: none Results Review: All pre-operative results and documents have been reviewed as part of the pre-operative evaluation. [facility] Past Medical History Medical History Acute atopic conjunctivitis of both eyes Allergies DJD (degenerative joint disease), cervical Encounter for screening colonoscopy 2015 Essential (primary) hypertension Hypertension Surgical History Surgical History H/O cervical spinal arthrodesis H/O tubal ligation 1974 History of tonsillectomy Status post right knee replacement Family History Family History Sibling Family history of glaucoma Hypertension Family history of heart disease in male family member before age 55 Spinal stenosis Mother Family history of malignant neoplasm of bone Father Family history of heart disease in male family member before age 55 Acute myocardial infarction Social History Social History Smoking packs per day: 2.5 Smoking cigarettes per day: 50.0 Years smoked: 18 Smoking pack-years: 45.00 Smoking status: Former smoker Tobacco type: cigarettes Second hand tobacco smoke exposure: No Smoking end date: 04/01/02 Alcohol intake: current Drinks per week: 1 Substance use: never Substance use type: does not use Living arrangements: alone Gender identity (if verbalized by the patient): Female Spiritual care concerns: No Agree to blood products: Yes Anes - Eval Final PreProcedure Day of Procedure 04/11/21 07:13 Patient weight: obese Heart: regular rate and rhythm Lungs: clear to auscultation Airway: Mallampati scale class II Neurological: alert and oriented Last oral intake: >/= 8 hours ASA classification: III Emergent: no Anesthetic plan: proceed Anesthesia type and monitoring: general GIVS and standard monitoring Results Review: All pre-operative results and documents have been reviewed as part of the pre-operative evaluation. Informed Consent: The patient's anesthetic plan and its attendant risks and benefits were discussed with the patient/family/POA. Questions were solicited and answers provided to the satisfaction of the patient/family/POA.
--- NOTE | 2021-04-11 07:23 | WPDGICN ---
Assessment and Plan Assessment and plan (1) Colon cancer screening: Code(s): Z12.11 - Encounter for screening for malignant neoplasm of colon Status: Acute Assessment and Plan: Patient has a personal history of colon polyps. For this reason surveillance colonoscopy is advised at this time. Further recommendations will be given after endoscopy. (2) History of colon polyps: Code(s): Z86.010 - Personal history of colonic polyps Status: Acute GI Consult Note Consult date/time: 04/11/21 07:23 HPI: Garima Chairez is a 70 year old female Presents for screening colonoscopy. Patient has a history of colon polyps in the past. Her current weight appetite bowel movements are normal. She denies abdominal pain. She has had no bleeding. Family history is noncontributory. Review of Systems Review of Systems: All systems reviewed & are unremarkable except as noted in HPI and below PMFSH Past Medical History Medical History Acute atopic conjunctivitis of both eyes Allergies DJD (degenerative joint disease), cervical Encounter for screening colonoscopy 2015 Essential (primary) hypertension Hypertension Surgical History Surgical History H/O cervical spinal arthrodesis H/O tubal ligation 1974 History of tonsillectomy Status post right knee replacement Family History Family History Sibling Family history of glaucoma Hypertension Family history of heart disease in male family member before age 55 Spinal stenosis Mother Family history of malignant neoplasm of bone Father Family history of heart disease in male family member before age 55 Acute myocardial infarction Social History Social History Smoking packs per day: 2.5 Smoking cigarettes per day: 50.0 Years smoked: 18 Smoking pack-years: 45.00 Smoking status: Former smoker Tobacco type: cigarettes Second hand tobacco smoke exposure: No Smoking end date: 04/01/02 Alcohol intake: current Drinks per week: 1 Substance use: never Substance use type: does not use Living arrangements: alone Gender identity (if verbalized by the patient): Female Spiritual care concerns: No Agree to blood products: Yes Meds Home Medications and Allergies Home Medications Medication Instructions Recorded Confirmed Type fluticasone propionate 50 1 spray NASAL DAILY PRN #18.2 ml 12/31/19 03/30/21 Rx mcg/actuation nasal spray,suspension loratadine 10 mg tablet 10 mg PO PRN PRN 01/04/21 03/30/21 History losartan 100 mg tablet 100 mg PO DAILY #90 tablet 03/09/21 03/30/21 Rx triamterene 37.5 1 cap PO DAILY #90 cap 03/13/21 03/30/21 Rx mg-hydrochlorothiazide 25 mg capsule levothyroxine 25 mcg tablet 25 mcg PO DAILY #90 tablet 03/14/21 03/30/21 Rx Allergies Allergy/AdvReac Type Severity Reaction Status Date / Time Penicillins Allergy Intermediate Hives Verified 04/11/21 06:10 Vital Signs Vital Signs - 24 hr 04/11/21 06:12 Temperature 97.1 F L Pulse Rate 100 Respiratory Rate 18 Blood Pressure 110/63 Pulse Oximetry 96 Exam Narrative: Physical exam reveals patient be alert. Vital signs stable. HEENT exam is unremarkable. Patient is anicteric. Lungs are clear to auscultation and percussion. Heart is without murmur or extra sounds. Abdominal exam bowel sounds are present soft nontender with no organomegaly. Digital external rectal exam is normal.
[2021-04-11 07:49] VITALS: BP 88/45; PULSE 83; RESP 25; O2SAT 97
[2021-04-11 07:59] VITALS: BP 95/52; PULSE 81; RESP 24; O2SAT 95
[2021-04-11 08:09] VITALS: BP 101/59; PULSE 80; RESP 24; O2SAT 96
== END 2021-04-11 08:17 | disposition home or self-care (01) ==
PROVIDERS: PCP Family Medicine; Visit Provider Internal Medicine Gastroenterology
PROC: 0DJD8ZZ Inspection of Lower Intestinal Tract, Via Natural or Artificial Opening Endoscopic (ICD-10-PCS; CPT 45378; principal; 2021-04-11 07:30)
DX: Z12.11 Encounter for screening for malignant neoplasm of colon (principal); Z86.010 Personal history of colon polyps; K64.8 Other hemorrhoids; I10 Essential (primary) hypertension; M47.812 Spondylosis without myelopathy or radiculopathy, cervical region; Z87.891 Personal history of nicotine dependence; E03.9 Hypothyroidism, unspecified; E66.9 Obesity, unspecified; Z68.37 Body mass index [BMI] 37.0-37.9, adult; Z98.1 Arthrodesis status
CPT/HCPCS: G0105; J2704; J7120